=== PATIENT | female | born 1975 ===

== ENCOUNTER 2018-03-29 20:34 | Emergency (ER) | payer OTHER, SELFPAY ==
[2018-03-29 22:13] VITALS: BP 124/85; PULSE 73; RESP 16; TEMP 98.3; O2SAT 99
[2018-03-29] MEDS ORDERED: Sodium Chloride 0.9% 1,000 ML IV STA (23:20)
[2018-03-30 00:02] LABS: BASO # 0.1 K/uL (0.0-0.2); EOS # 0.1 K/uL (0.0-0.7); EOS % 1.8 % (0.0-4.0); HEMOGLOBIN 11.7 g/dL (12.0-16.0); LYMPH # 3.5 K/uL (1.0-4.3); LYMPH % 42.8 % (20.0-40.0); MEAN CELL VOLUME 78.4 fl (81.0-99.0); MEAN CORPUSCULAR HEMOGLOBIN 25.6 pg (27.0-31.0); MEAN CORPUSCULAR HGB CONC 32.7 g/dL (33.0-37.0); MEAN PLATELET VOLUME 9.4 fl (7.2-11.7); MONO # 0.6 K/uL (0.0-0.8); MONO % 7.1 % (0.0-10.0); NEUT # 3.9 K/uL (1.8-7.0); NEUT % 47.3 % (50.0-75.0); RBC 4.58 Mil/uL (3.80-5.20); RED CELL DISTRIBUTION WIDTH 15.6 % (11.5-14.5); WHITE BLOOD COUNT 8.1 K/uL (4.8-10.8)
[2018-03-30 00:07] LABS: ALB/GLOB RATIO 1.3 (1.0-2.1); ALBUMIN 4.4 g/dL (3.5-5.0); ALT/SGPT 34 U/L (9-52); AST/SGOT 20 U/L (14-36); BLOOD UREA NITROGEN 10 mg/dl (7-17); CALCIUM 9.2 mg/dL (8.4-10.2); GFR NON-AFRICAN AMERICAN > 60
[2018-03-30 02:03] LABS: SQUAMOUS EPITHIAL 4 /hpf (0-5); URINE BACTERIA RARE (<OCC); URINE BILIRUBIN NEGATIVE (NEGATIVE); URINE BLOOD SMALL (NEGATIVE); URINE CLARITY CLEAR (Clear); URINE COLOR COLORLESS (YELLOW); URINE GLUCOSE (UA) NEG (Normal); URINE LEUKOCYTE ESTERASE TRACE Leu/uL (Negative); URINE PROTEIN NEGATIVE (NEGATIVE); URINE UROBILINOGEN 0.2-1.0 mg/dL (0.2-1.0)
--- NOTE | 2018-03-30 03:44 | ED PDOC ---
HPI: Abdomen Time Seen by Provider: 03/29/18 23:12 Chief Complaint (Nursing): Abdominal Pain Chief Complaint (Provider): abdominal pain and left flank pain History Per: Patient History/Exam Limitations: no limitations Onset/Duration Of Symptoms: Days (x2) Current Symptoms Are (Timing): Still Present Quality Of Discomfort: Burning Associated Symptoms: Urinary Symptoms (dysuria). denies: Fever, Chills, Nausea, Vomiting, Diarrhea Additional Complaint(s): Dottie Madison is a 42 year old female, with no significant past medical history, who presents to the emergency department complaining of abdominal pain and left flank pain onset for x2 days. Patient also reports developing dysuria described as a burning sensation and suprapubic pain that radiates to left flank. She denies any fever, chills, nausea, vomit, diarrhea or urinary urgency. No further medical complaints. PMD: None provided. Past Medical History Reviewed: Historical Data, Nursing Documentation, Vital Signs Vital Signs: Last Vital Signs Temp 98.3 F 03/29/18 20:58 Pulse 73 03/29/18 20:58 Resp 16 03/29/18 20:58 BP 124/85 03/29/18 20:58 Pulse Ox 99 03/29/18 20:58 - Medical History PMH: No Chronic Diseases - Surgical History Surgical History: No Surg Hx - Family History Family History: States: Unknown Family Hx - Social History Current smoker - smoking cessation education provided: No Alcohol: None Drugs: Denies - Home Medications Home Medications: Ambulatory Orders Medication Instructions Recorded Nitrofurantoin Macrocrystals 100 mg PO BID #14 cap 03/30/18 [Macrobid] Polyethylene Glycol 3350 [Miralax] 17 g PO QAM PRN #7 pkg 03/30/18 - Allergies Allergies/Adverse Reactions: Allergies Allergy/AdvReac Type Severity Reaction Status Date / Time No Known Allergies Allergy Verified 03/29/18 22:13 Review of Systems ROS Statement: Except As Marked, All Systems Reviewed And Found Negative Constitutional: Negative for: Fever, Chills Gastrointestinal: Positive for: Abdominal Pain (suprapubic), Other (left flank pain). Negative for: Nausea, Vomiting, Diarrhea Genitourinary Female: Positive for: Dysuria. Negative for: Other (urgency) Physical Exam - Reviewed Nursing Documentation Reviewed: Yes Vital Signs Reviewed: Yes - Physical Exam Appears: Positive for: No Acute Distress Head Exam: Positive for: ATRAUMATIC, NORMAL INSPECTION, NORMOCEPHALIC Skin: Positive for: Normal Color, Warm, Dry Eye Exam: Positive for: Normal appearance, EOMI, PERRL Neck: Positive for: Painless ROM Cardiovascular/Chest: Positive for: Regular Rate, Rhythm. Negative for: Murmur Respiratory: Positive for: Normal Breath Sounds. Negative for: Respiratory Distress Gastrointestinal/Abdominal: Positive for: Tenderness (suprapubic). Negative for: Guarding, Rebound Back: Positive for: L CVA Tenderness. Negative for: R CVA Tenderness, Vertebral Tenderness Extremity: Positive for: Normal ROM (upper and lower extremities). Negative for: Deformity, Swelling Neurologic/Psych: Positive for: Alert, Oriented, Gait (steady) - Laboratory Results Result Diagrams: 03/29/18 23:50 03/29/18 23:50 - ECG O2 Sat by Pulse Oximetry: 99 (RA) Pulse Ox Interpretation: Normal Medical Decision Making Medical Decision Making: Time: 23:12 Initial Impression: 42 y/o female with suprapubic and left flank pain. Initial Plan: --Abd & Pelvis w/o PO or IV Contrast [CT] --Urine --Urine dipstick --Toradol 30 mg IV --Sodium Chloride 1,000 ml IV 1,000 mls/hr --Reevaluation 03:39 Abdomen/Pelvis CT IMPRESSION: Moderate constipation. No urolithiasis or hydronephrosis 04:10 -Labs showed no clinical significant abnormalities. Will treat patient on strong clinical suspicion for UTI and constipation. Scribe Attestation: Documented by Forest Alonso, acting as a scribe for Enrike Craven MD. Provider Scribe Attestation: All medical record entries made by the Scribe were at my direction and personally dictated by me. I have reviewed the chart and agree that the record accurately reflects my personal performance of the history, physical exam, medical decision making, and the department course for this patient. I have also personally directed, reviewed, and agree with the discharge instructions and disposition. Disposition - Clinical Impression Clinical Impression: UTI (urinary tract infection), Constipation - Disposition Disposition: Routine/Home Disposition Time: 04:10 Condition: STABLE Prescriptions: Nitrofurantoin Macrocrystals [Macrobid] 100 mg PO BID #14 cap Polyethylene Glycol 3350 [Miralax] 17 g PO QAM PRN #7 pkg PRN Reason: Constipation Instructions: Urinary Tract Infections in Adults, Constipation in Adults Forms: [facility] (Stateless) Print Language: TELUGU
--- NOTE | 2018-03-30 11:19 | CT ---
Date of service: 03/30/2018 PROCEDURE: CT Abdomen and Pelvis without intravenous contrast HISTORY: renal colic COMPARISON: None. TECHNIQUE: Without contrast.. Contrast dose: 0 Radiation dose: Total exam DLP = 349.84 mGy-cm. This CT exam was performed using one or more of the following dose reduction techniques: Automated exposure control, adjustment of the mA and/or kV according to patient size, and/or use of iterative reconstruction technique. FINDINGS: LOWER THORAX: Unremarkable. LIVER: Unremarkable. No gross lesion or ductal dilatation. GALLBLADDER AND BILE DUCTS: Unremarkable. PANCREAS: Unremarkable. No gross lesion or ductal dilatation. SPLEEN: Unremarkable. ADRENALS: Unremarkable. No mass. KIDNEYS AND URETERS: Unremarkable. No hydronephrosis. No solid mass. No renal or ureteral calculus. No hydroureter. VASCULATURE: Unremarkable. No aortic aneurysm. BOWEL: No bowel obstruction. Moderate retained feces. Possible constipation. APPENDIX: Unremarkable. Normal appendix. PERITONEUM: Unremarkable. No free fluid. No free air. LYMPH NODES: No retroperitoneal or pelvic lymphadenopathy. There are numerous shotty subcentimeter mesenteric lymph nodes as well as nodes medial to the cecum and ascending colon. This is consistent with nonspecific mesenteric adenitis. Please correlate clinically. BLADDER: Unremarkable. REPRODUCTIVE: Normal uterus. No adnexal masses. BONES: No acute fracture. OTHER FINDINGS: None. IMPRESSION: No evidence of urinary calculus or urinary tract obstruction. Incidentally noted nonspecific mesenteric adenitis. Possible constipation. No additional abnormality. The preliminary findings for this examination were reported by [facility] at 3:39 a.m. on 03/30/2018. There is concurrence of this report with the preliminary findings.
== END 2018-03-30 04:15 | disposition home or self-care (01) ==
LOC: H.ER 20:34
DX: N39.0 Urinary tract infection, site not specified (principal); K59.00 Constipation, unspecified
CPT/HCPCS: 74176; 80053; 81003; 81025; 85025; 99283; J1885; J7030

== ENCOUNTER 2018-05-08 10:49 | Emergency (ER) | payer SELFPAY ==
[2018-05-08 11:01] VITALS: TEMP 98
[2018-05-08 12:13] VITALS: BP 116/76; PULSE 68; RESP 16; O2SAT 100
--- NOTE | 2018-05-08 12:31 | ED PDOC ---
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 states 2 weeks ago she developed L upper eyelid swelling and redness. Initially she had a headache and tactile fever on the first day of the symptoms but resolved spontaneously. Denies visual changes, trauma, hx of DM, contact lens use. States she was seen by her PMD and prescribed Gentak on which has not provided any relief. Past Medical History Reviewed: Historical Data, Nursing Documentation, Vital Signs Vital Signs: Last Vital Signs Temp 98 F 05/08/18 10:57 Pulse 68 05/08/18 12:12 Resp 16 05/08/18 12:12 BP 116/76 05/08/18 12:12 Pulse Ox 100 05/08/18 12:12 - Family History Family History: States: No Known Family Hx - Home Medications Home Medications: Ambulatory Orders Medication Instructions Recorded Nitrofurantoin Macrocrystals 100 mg PO BID #14 cap 03/30/18 [Macrobid] Polyethylene Glycol 3350 [Miralax] 17 g PO QAM PRN #7 pkg 03/30/18 Cephalexin [cephalexin] 500 mg PO Q6 #28 cap 05/08/18 - Allergies Allergies/Adverse Reactions: Allergies Allergy/AdvReac Type Severity Reaction Status Date / Time No Known Allergies Allergy Verified 05/08/18 11:01 Review of Systems ROS Statement: Except As Marked, All Systems Reviewed And Found Negative Eyes: Positive for: Pain Physical Exam - Physical Exam Appears: Positive for: Well, Non-toxic, No Acute Distress Skin: Positive for: Normal Color, Warm. Negative for: Rash Eye Exam: Positive for: EOMI (without pain), PERRL, Other (L upper eyelid with erythematous papule ). Negative for: Nystagmus, Periorbital swelling, Periorbital tenderness, Conjunctival injection (b/l) Neurologic/Psych: Positive for: Alert, Oriented (x3). Negative for: Aphasia, Facial Droop - ECG O2 Sat by Pulse Oximetry: 100 - Progress ED Course And Treament: Advised to complete course of Gentak and to f/u with Dr. Palomares for further evaluation but if temperature of 100.4 or above develops or if symptoms worsen she is to return to ED Disposition - Clinical Impression Clinical Impression: Stye - Patient ED Disposition Is Patient to be Admitted: No - Disposition Referrals: Ollie Palomares MD [Staff Provider] - Disposition: Routine/Home Disposition Time: 12:00 Condition: STABLE Additional Instructions: RETURN TO ED IMMEDIATELY IF SYMPTOMS WORSEN FOLLOW UP WITH DR. PALOMARES FOR FURTHER EVALUATION PATRICIA ESPINOZA, thank you for letting us take care of you today. Your provider was Luci Smith MD and you were treated for HEADACHE. The emergency medical care you received today was directed at your acute symptoms. If you were prescribed any medication, please fill it and take as directed. It may take several days for your symptoms to resolve. Return to the Emergency Department if your symptoms worsen, do not improve, or if you have any other problems. Please contact your doctor or call one of the physicians/clinics you have been referred to that are listed on the Patient Visit Information form that is included in your discharge packet. Bring any paperwork you were given at discharge with you along with any medications you are taking to your follow up visit. Our treatment cannot replace ongoing medical care by a primary care provider outside of the emergency department. Thank you for allowing the [facility] team to be part of your care today. If you had an X-Ray or CT scan: A Radiologist will review the ED reading if any change in treatment is needed we will contact you. If you had a blood, urine, or wound culture: It will take several days for the results, if any change in treatment is needed we will contact you. If you had an STI test: It will take 48 hours for the results. Please call after 1 week if you have not heard back. Prescriptions: Cephalexin [cephalexin] 500 mg PO Q6 #28 cap Instructions: Stye (Hordeolum) Forms: [facility] (Chadian) Print Language: YEMENI
== END 2018-05-08 12:23 | disposition home or self-care (01) ==
LOC: H.ER 10:49
DX: H00.019 Hordeolum externum unspecified eye, unspecified eyelid (principal)